=== PATIENT | male | born 1945 | race Caucasian/White ===

== ENCOUNTER → 2020-10-01 13:47 | Outpatient (BNVA) | payer MEDICARE, OTHER, SELFPAY | PROVIDERS: Visit Provider Urology | DX: Z13.89 Encounter for screening for other disorder (principal) | CPT/HCPCS: Q3014 ==

== ENCOUNTER 2021-08-10 10:37 | Outpatient (REF) | payer MEDICARE, OTHER, SELFPAY ==
[2021-08-10 12:07] LABS: Erythrocyte Sedimentation Rate 29 MM/HR (0-15)
[2021-08-10 12:13] LABS: Anion Gap 10 (12-20); Blood Urea Nitrogen 23 mg/dL (9-16); Calcium 10.1 mg/dL (8.4-10.2); Carbon Dioxide 32 mmol/L (22-29); Chloride 106 mmol/L (96-108); Estimated Glomerular Filt Rate > 60; Glucose Fasting 101 mg/dL (60-99); Potassium 4.8 mmol/L (3.3-5.1); Sodium 143 mmol/L (135-145)
[2021-08-10 12:29] LABS: HIV AB/AG Nonreactive (Nonreactive); HIV Num 1 0.07 S/CO (0.00-0.99)
[2021-08-10 12:38] LABS: Syphilis Screen Reactive (Nonreactive)
[2021-08-11 05:06] LABS: Lyme Abs Screen <0.90 index
[2021-08-11 11:17] LABS: Anti Nuclear Antibody Screen NEGATIVE (NEGATIVE)
[2021-08-17 12:44] LABS: RPR Quantitative Reactive 1:1 (Nonreactive); T.Pallidum Particle Agg Test Reactive (Nonreactive)
== END 2021-08-10 10:38 | disposition home or self-care (01) ==
LOC: HO.LAB 10:37
PROVIDERS: Visit Provider Psychiatry & Neurology Neurology
DX: G62.9 Polyneuropathy, unspecified (principal)
CPT/HCPCS: 36415; 80048; 85652; 86038; 86039; 86592; 86617; 86618; 86780; 87389

== ENCOUNTER 2021-09-16 09:24 | Day surgery (SDC) | payer MEDICARE, OTHER, SELFPAY ==
[2021-09-16] VITALS (7 sets, daily range): BP systolic 94–117; BP diastolic 42–63; PULSE 52–74; RESP 16–20; TEMP 36.3–36.8; O2SAT 97–99; BMI 25.3
--- NOTE | ~2021-09-16 | FL_ITS ---
PROCEDURE: XR LUMBAR PUNCTURE CLINICAL INFORMATION: Small fiber neuropathy. COMPARISON: None TECHNIQUE: Following explaining fluoroscopy-guided lumbar puncture procedure, benefits and risk, a written consent was obtained. Patient was placed prone on fluoroscopy table and low back area was cleaned and draped in usual sterile manner. 1% lidocaine was injected at puncture site overlying the L4-L5 disc level in a left paramidline region. A 22-gauge spinal needle was inserted from the skin intrathecally under fluoroscopy. After observing CSF fluid return, patient was quickly placed in left lateral decubitus view and opening CSF pressure was obtained. Subsequently clear CSF fluid was collected in 4 test tubes. Postprocedure stylet was reintroduced into the needle and needle withdrawn. Complete hemostasis achieved at puncture site. Sterile dressing applied postprocedure. Patient tolerated procedure extremely well. FINDINGS: The opening CSF pressure measured 17 cm of water. Approximately 10.5 mL of clear CSF fluid collection in 4 test tubes and sent to lab. FLUOROSCOPY TIME: 0.3 minutes DOSE AREA PRODUCT: 2.293 Gy-cm2 FL/FL guided lumbar puncture LP IMPRESSION: Successful fluoroscopy-guided L4-L5 lumbar puncture performed.
[2021-09-16 09:40] LABS: MANUAL DIFF FLAG NO
[2021-09-16 09:54] LABS: Basophils Percent Auto 0.2 % (0-2); Eosinophils Absolute Auto 0.3 X10*3/uL (0.0-0.4); Eosinophils Percent Auto 3.3 % (0-4); Hematocrit 40.9 % (42.0-52.0); Imm Gran Abs Auto 0.05 X10*3/uL (0.00-0.03); Imm Gran Pct Auto 0.5 % (0.0-0.4); Lymphocytes Absolute Auto 2.1 X10*3/uL (1.2-4.9); Lymphocytes Percent Auto 21.3 % (20-40); Mean Corpuscular HGB Conc 34.2 g/dl (31.0-36.0); Mean Corpuscular Hemoglobin 30.5 pg (27.0-33.0); Mean Corpuscular Volume 89.1 fL (80.0-98.0); Mean Platelet Volume 9.1 fL (9.4-12.4); Monocytes Absolute Auto 0.8 X10*3/uL (0.1-1.2); Monocytes Percent Auto 7.9 % (2-11); Neutrophils Absolute Auto 6.6 x10*3/uL (2.0-8.3); Neutrophils Percent Auto 66.8 % (45-73); Platelet Count 227 X10*3/uL (160-400); Red Blood Count 4.59 X10*6/uL (4.60-5.80); White Blood Count 9.9 X10*3/uL (4.8-10.8)
[2021-09-16 09:57] LABS: INTERNATIONAL NORM RATIO 1.1 (0.9-1.1); Prothrombin Time 12.4 SEC (9.9-13.0)
[2021-09-16 10:00] LABS: Partial Thromboplastin Time 36.6 SEC (24.1-38.0)
[2021-09-16 13:20] LABS: Glucose CSF 68 mg/dL; Total Protein CSF 43.2 mg/dL (15-45)
[2021-09-16 13:24] LABS: CSF Appearance Clear, Colorless; CSF Tube # 3
[2021-09-16 14:15] LABS: Appearance CSF CLEAR; CSF Monos 40 %; CSF Tube # 4; Color CSF COLORLESS; Lymphocytes CSF 60 %; Red Blood Cell CSF 1 MM*3; White Blood Cell CSF 1 MM*3
[2021-09-17 06:30] LABS: Oligoclonal Serum Yes
[2021-09-19 21:46] LABS: Albumin 4.2 g/dL (3.2-4.6); Albumin, CSF 24.5 mg/dL (8.0-42.0); IgG 1420 mg/dL (600-1540); IgG Synthesis Rate -5.8 mg/24 h (-9.9-3.3); IgG, CSF 3.6 mg/dL (0.8-7.7)
[2021-09-20 16:40] LABS: VDRL Qualitative CSF Nonreactive (Nonreactive)
== END 2021-09-16 15:29 | disposition home or self-care (01) ==
PROVIDERS: Psychiatry & Neurology Neurology; Visit Provider Radiology Diagnostic Radiology
PROC: 009U3ZZ Drainage of Spinal Canal, Percutaneous Approach (ICD-10-PCS; CPT 62270; principal; 2021-09-16 11:00)
DX: G62.9 Polyneuropathy, unspecified (principal); Z79.899 Other long term (current) drug therapy
CPT/HCPCS: 36415; 62328; 82042; 82945; 83916; 84157; 85025; 85610; 85730; 86592; 87015; 87070; 87205; 89051

== ENCOUNTER 2021-11-04 13:56 | Outpatient (REF) | payer MEDICARE, OTHER, SELFPAY ==
[2021-11-04 15:13] LABS: Prostate Specific Antigen 4.18 ng/mL (<0.05-4.0)
== END 2021-11-04 13:57 | disposition home or self-care (01) ==
LOC: HO.LAB 13:56
PROVIDERS: PCP Physician Assistant; Visit Provider Urology
DX: N40.1 Benign prostatic hyperplasia with lower urinary tract symptoms (principal); N13.8 Other obstructive and reflux uropathy; Z12.5 Encounter for screening for malignant neoplasm of prostate
CPT/HCPCS: 36415; 84153

== ENCOUNTER → 2021-11-05 11:12 | Outpatient (BNVA) | payer MEDICARE, OTHER, SELFPAY | PROVIDERS: Visit Provider Urology | DX: N40.1 Benign prostatic hyperplasia with lower urinary tract symptoms (principal); N13.8 Other obstructive and reflux uropathy; R39.12 Poor urinary stream | CPT/HCPCS: Q3014 ==

== ENCOUNTER 2022-04-03 16:22 | Emergency (ER) | payer MEDICARE, OTHER, SELFPAY ==
--- NOTE | ~2022-04-03 | XR_ITS ---
EXAMINATION: XR CHEST CLINICAL INFORMATION: Chest pain COMPARISON: CT chest 03/17/2021 TECHNIQUE: Frontal view of the chest was obtained. FINDINGS: No significant abnormality is noted involving the heart, lungs, mediastinum, bony thorax or soft tissues. XR/XR chest 1V IMPRESSION: Unremarkable examination.
--- NOTE | 2022-04-03 16:27 | ECG_ITS ---
Test Reason : CHEST PAIN Blood Pressure : / mmHG Vent. Rate : 067 BPM Atrial Rate : 067 BPM P-R Int : 156 ms QRS Dur : 134 ms QT Int : 410 ms P-R-T Axes : 050 000 030 degrees QTc Int : 433 ms Normal sinus rhythm Right bundle branch block Abnormal ECG No previous ECGs available Referred By: Generic ED Physician Electronically Signed By:DEWEY CAGLE
[2022-04-03 16:31] VITALS: BP 127/63; PULSE 75; RESP 18; TEMP 37.1; O2SAT 97; BMI 25.4
[2022-04-03 16:51] LABS: MANUAL DIFF FLAG NO
[2022-04-03 16:52] LABS: Basophils Percent Auto 0.4 % (0-2); Eosinophils Absolute Auto 0.2 X10*3/uL (0.0-0.4); Hematocrit 39.1 % (42.0-52.0); Hemoglobin 13.7 g/dl (14.0-18.0); Imm Gran Abs Auto 0.03 X10*3/uL (0.00-0.03); Imm Gran Pct Auto 0.3 % (0.0-0.4); Lymphocytes Absolute Auto 1.8 X10*3/uL (1.2-4.9); Lymphocytes Percent Auto 18.6 % (20-40); Mean Corpuscular Hemoglobin 30.2 pg (27.0-33.0); Mean Corpuscular Volume 86.3 fL (80.0-98.0); Mean Platelet Volume 9.3 fL (9.4-12.4); Monocytes Absolute Auto 0.6 X10*3/uL (0.1-1.2); Monocytes Percent Auto 5.9 % (2-11); Neutrophils Absolute Auto 7.1 x10*3/uL (2.0-8.3); Neutrophils Percent Auto 72.8 % (45-73); Platelet Count 209 X10*3/uL (160-400); Red Blood Count 4.53 X10*6/uL (4.60-5.80); Red Cell Distribution Width 12.3 % (11.0-16.0); White Blood Count 9.7 X10*3/uL (4.8-10.8)
[2022-04-03 17:00] LABS: Appearance Urine Clear; Color Urine Yellow; Glucose Urine UA Negative (Negative); Leukocyte Esterase Urine Small (1+) (Negative); Nitrite Urine Negative (Negative); Urine Blood Negative (Negative); Urine Ketones Negative (Negative); Urine Protein Negative (Neg-Trace)
[2022-04-03 17:06] LABS: Anion Gap 13 (12-20); Blood Urea Nitrogen 20 mg/dL (9-16); Calcium 9.5 mg/dL (8.4-10.2); Carbon Dioxide 25 mmol/L (22-29); Chloride 104 mmol/L (96-108); Creatinine Clr Calc Pharmacy 58.7; Estimated Glomerular Filt Rate > 60; Glucose Random 151 mg/dL (60-115); Potassium 4.4 mmol/L (3.3-5.1); Sodium 138 mmol/L (135-145)
[2022-04-03 17:13] LABS: Troponin-I High Sensitivity < 3.5 ng/L (<3.5-35.0)
[2022-04-03 17:14] LABS: COVID-19 Test Negative (Negative); IDNOW Serial# 08D9AD1C
[2022-04-03 17:17] LABS: Bacteria Urine None Seen (None Seen); Hyaline Casts Urine 0-2 /LPF (0-2); RBC Urine 0-2 /HPF (0-2); Squamous Epithelial Cell Urine 0-2 /HPF (0-2); UACC Culture Trigger YES; WBC Urine 0-5 /HPF (0-5)
[2022-04-03 19:42] VITALS: BP 149/64; PULSE 61; RESP 16; TEMP 36.1; O2SAT 98
[2022-04-03 23:11] VITALS: BP 135/63; PULSE 60; TEMP 36.4; O2SAT 99
--- NOTE | 2022-04-03 23:57 | PC.NURSE ---
Pt. alert and oriented, sitting in bed. Pt. would like to wait to take medications until right at time of d/c as he wants to be sure to be home before the flexeril takes effect.
--- NOTE | 2022-04-04 00:13 | ED_ITS ---
HPI - General Adult General Chief complaint: Dizziness Stated complaint: Weakness, chest pain Time Seen by Provider: 04/03/22 23:42 Source: patient Mode of arrival: ambulatory Limitations: no limitations History of Present Illness HPI narrative: Patient with multiple complaints chronic back pain anxiety complaining of pain to lower back does not any pain medication at home also feel dizzy and anxious unable to sleep very well was seen in ER last week at [facility] was given Tylenol and ibuprofen which did not work has poor sleep Related Data Home Medications Medication Instructions Recorded Confirmed amitriptyline 25 mg tablet 25 mg PO BEDTIME 10/01/20 blood sugar diagnostic #10 ea 10/01/20 lancets #100 ea 10/01/20 Previous Rx's Medication Instructions Recorded finasteride 5 mg tablet 5 mg PO DAILY 90 days #90 tabs 11/05/21 tolterodine 4 mg capsule,extended 4 mg PO DAILY 30 days #30 caps 11/18/21 release 24 hr cyclobenzaprine 10 mg tablet 10 mg PO Q8H #20 tabs 04/03/22 lorazepam 1 mg tablet (Ativan) 1 mg PO BEDTIME PRN anxiety #14 04/03/22 tabs tramadol 50 mg tablet 50 mg PO Q6H PRN pain #20 tabs 04/03/22 Allergies Allergy/AdvReac Type Severity Reaction Status Date / Time No Known Allergies Allergy Verified 04/03/22 16:31 Review of Systems Review of Systems: Yes all other systems are reviewed and are negative [facility] Past Medical History Medical History Bladder outlet obstruction Incomplete emptying of bladder Mass of right testicle Orchalgia Urinary urgency Weak urinary stream Social History Social History Advance Directives: No Advance Directives Information Provided: No Physical Exam ED Vital Signs: Vital Signs - 24 hr 04/03/22 16:31 04/03/22 19:42 04/03/22 23:11 Temperature 98.7 F 97.0 F 97.6 F Pulse Rate 75 61 60 Respiratory Rate 18 16 Blood Pressure 127/63 149/64 H 135/63 Pulse Oximetry 97 98 99 Oxygen Delivery Method Room Air Room Air Room Air BMI result Body Mass Index 25.4 Appearance: Alert. Oriented X3. No acute distress. Eyes: PERRLA, No Nystagmus ENT: Pharynx normal. Oral Mucosa moist Neck: Normal inspection. Neck supple. CVS: Normal heart rate and rhythm. Pulses normal. Respiratory: No respiratory distress. Equal air entry bilateral, no wheezing/rales/rhonchi Abdomen: Soft and nontender. Bowel sounds are present, no mass palpable, no CVA tenderness Skin: Skin warm and dry. Normal skin color. Normal skin turgor. Extremities: No lower extremity edema. No calf tenderness back: Diffuse lumbar spine tenderness no focal midline tenderness SLR negative gait stable Neuro: Oriented X 3. No motor deficit. No sensory deficit.No cerebellar signs , cranial nerves II-XII intact Medical Decision Making MDM Narrative Medical decision making narrative: Patient with nonspecific complaints seems to be depressed and anxious discharge patient home on lorazepam Flexeril and tramadol advised to follow with PCP patient labs were stable EKG without ischemic changes Lab Data Lab results reviewed: Yes I reviewed the patient's lab results. Result diagrams: 04/03/22 16:43 04/03/22 16:43 Labs: Lab Results 04/03/22 04/03/22 04/03/22 Range/Units 16:43 16:43 16:43 WBC 9.7 (4.8-10.8) X10*3/uL RBC 4.53 L (4.60-5.80) X10*6/uL Hgb 13.7 L (14.0-18.0) g/dl Hct 39.1 L (42.0-52.0) % MCV 86.3 (80.0-98.0) fL MCH 30.2 (27.0-33.0) pg MCHC 35.0 (31.0-36.0) g/dl RDW 12.3 (11.0-16.0) % Plt Count 209 (160-400) X10*3/uL MPV 9.3 L (9.4-12.4) fL Immature Gran % (Auto) 0.3 (0.0-0.4) % Neut % (Auto) 72.8 (45-73) % Lymph % (Auto) 18.6 L (20-40) % [place] % (Auto) 5.9 (2-11) % Eos % (Auto) 2.0 (0-4) % Baso % (Auto) 0.4 (0-2) % Lymph # (Auto) 1.8 (1.2-4.9) X10*3/uL [place] # (Auto) 0.6 (0.1-1.2) X10*3/uL Eos # (Auto) 0.2 (0.0-0.4) X10*3/uL Baso # (Auto) 0.0 (0.0-0.2) X10*3/uL Abs Immat Gran (auto) 0.03 (0.00-0.03) X10*3/uL Absolute Neuts (auto) 7.1 (2.0-8.3) x10*3/uL Absolute Nucleated RBC 0.000 (0.0-0.012) X10*3/uL Nucleated RBC % (auto) 0.0 (0.0-0.2) /100WBC Sodium 138 (135-145) mmol/L Potassium 4.4 (3.3-5.1) mmol/L Chloride 104 (96-108) mmol/L Carbon Dioxide 25 (22-29) mmol/L Anion Gap 13 (12-20) BUN 20 H (9-16) mg/dL Creatinine 0.92 (0.5-1.4) mg/dL Estim Creat Clear Calc 58.7 Estimated GFR > 60 Random Glucose 151 H (60-115) mg/dL Calcium 9.5 (8.4-10.2) mg/dL Troponin I High Sens < 3.5 (<3.5-35.0) ng/L Urine Color Urine Appearance Urine pH (5.0-9.0) Ur Specific [place] (1.005-1.025) Urine Protein (Neg-Trace) mg/dL Urine Glucose (UA) (Negative) mg/dL Urine Ketones (Negative) mg/dL Urine Blood (Negative) Urine Nitrite (Negative) Ur Leukocyte Esterase (Negative) Urine RBC (0-2) /HPF Urine WBC (0-5) /HPF Ur Squamous Epith Cells (0-2) /HPF Urine Bacteria (None Seen) Hyaline Casts (0-2) /LPF COVID-19 ([facility]) (Negative) COVID-19 Clin Com 04/03/22 04/03/22 Range/Units 16:43 16:51 WBC (4.8-10.8) X10*3/uL RBC (4.60-5.80) X10*6/uL Hgb (14.0-18.0) g/dl Hct (42.0-52.0) % MCV (80.0-98.0) fL MCH (27.0-33.0) pg MCHC (31.0-36.0) g/dl RDW (11.0-16.0) % Plt Count (160-400) X10*3/uL MPV (9.4-12.4) fL Immature Gran % (Auto) (0.0-0.4) % Neut % (Auto) (45-73) % Lymph % (Auto) (20-40) % [place] % (Auto) (2-11) % Eos % (Auto) (0-4) % Baso % (Auto) (0-2) % Lymph # (Auto) (1.2-4.9) X10*3/uL [place] # (Auto) (0.1-1.2) X10*3/uL Eos # (Auto) (0.0-0.4) X10*3/uL Baso # (Auto) (0.0-0.2) X10*3/uL Abs Immat Gran (auto) (0.00-0.03) X10*3/uL Absolute Neuts (auto) (2.0-8.3) x10*3/uL Absolute Nucleated RBC (0.0-0.012) X10*3/uL Nucleated RBC % (auto) (0.0-0.2) /100WBC Sodium (135-145) mmol/L Potassium (3.3-5.1) mmol/L Chloride (96-108) mmol/L Carbon Dioxide (22-29) mmol/L Anion Gap (12-20) BUN (9-16) mg/dL Creatinine (0.5-1.4) mg/dL Estim Creat Clear Calc Estimated GFR Random Glucose (60-115) mg/dL Calcium (8.4-10.2) mg/dL Troponin I High Sens (<3.5-35.0) ng/L Urine Color Yellow Urine Appearance Clear Urine pH 7.0 (5.0-9.0) Ur Specific [place] 1.010 (1.005-1.025) Urine Protein Negative (Neg-Trace) mg/dL Urine Glucose (UA) Negative (Negative) mg/dL Urine Ketones Negative (Negative) mg/dL Urine Blood Negative (Negative) Urine Nitrite Negative (Negative) Ur Leukocyte Esterase Small (1+) H (Negative) Urine RBC 0-2 (0-2) /HPF Urine WBC 0-5 (0-5) /HPF Ur Squamous Epith Cells 0-2 (0-2) /HPF Urine Bacteria None Seen (None Seen) Hyaline Casts 0-2 (0-2) /LPF COVID-19 ([facility]) Negative (Negative) COVID-19 Clin Com See Note ECG Data Attestation: I personally reviewed and interpreted this ECG as follows: Interpretation: Normal sinus rhythm heart rate 67 beats per minute right bundle-branch block no acute ST-T no acute ischemia Discharge Plan Discharge Clinical Impression: Chronic pain disorder, Anxiety Patient Disposition: Home, Self-Care Instructions: Chronic Pain (ED), Anxiety (ED) Additional Instructions: Take medication as prescribed Follow with PCP Prescriptions: New cyclobenzaprine 10 mg tablet 10 mg PO Q8H Qty: 20 0RF tramadol 50 mg tablet 50 mg PO Q6H PRN (Reason: pain) Qty: 20 0RF lorazepam [Ativan] 1 mg tablet 1 mg PO BEDTIME PRN (Reason: anxiety) Qty: 14 0RF No Action tolterodine 4 mg capsule,extended release 24hr 4 mg PO DAILY 30 Days Qty: 30 1RF amitriptyline 25 mg tablet 25 mg PO BEDTIME (DME) Accu-Chek Gabriela Plus test strp Strip See Rx Instructions Not Applicable .MEDSUPPLY Qty: 10 Rx Instructions: As directed (DME) lancets Misc See Rx Instructions topical .MEDSUPPLY Qty: 100 Rx Instructions: As directed finasteride 5 mg tablet 5 mg PO DAILY 90 Days Qty: 90 1RF
[2022-04-04 00:19] VITALS: BP 134/70; PULSE 62; RESP 17; TEMP 36.7; O2SAT 99
[2022-04-04] MEDS: traMADoL HCL 50 MG TABLET PO (00:40)
[2022-04-04] MEDS: Cyclobenzaprine HCl 10 MG TABLET PO (00:41)
== END 2022-04-04 00:49 | disposition home or self-care (01) ==
PROVIDERS: Emergency Provider Internal Medicine; PCP Physician Assistant
DX: G89.4 Chronic pain syndrome (principal); M54.50 Low back pain, unspecified; F41.9 Anxiety disorder, unspecified; Z20.822 Contact with and (suspected) exposure to COVID-19
CPT/HCPCS: 71045; 80048; 81001; 81003; 84484; 85025; 87086; 87635; 93005; 99283; 99284

== ENCOUNTER → 2022-08-30 13:35 | Outpatient (BNVA) | payer MEDICARE, OTHER, SELFPAY | PROVIDERS: PCP Internal Medicine; Visit Provider Nurse Practitioner Family | DX: R26.9 Unspecified abnormalities of gait and mobility (principal); R25.2 Cramp and spasm | CPT/HCPCS: 99202 ==

== ENCOUNTER → 2022-10-01 08:55 | Outpatient (BNVA) | payer MEDICARE, OTHER, SELFPAY | PROVIDERS: PCP Internal Medicine; Visit Provider Nurse Practitioner Family | DX: G31.84 Mild cognitive impairment of uncertain or unknown etiology (principal); R26.9 Unspecified abnormalities of gait and mobility; R25.2 Cramp and spasm | CPT/HCPCS: 99212 ==

== ENCOUNTER → 2022-10-13 15:47 | Outpatient (BNVA) | payer MEDICARE, OTHER, SELFPAY | PROVIDERS: PCP Internal Medicine; Visit Provider Nurse Practitioner Family | DX: G31.84 Mild cognitive impairment of uncertain or unknown etiology (principal); R26.9 Unspecified abnormalities of gait and mobility; R25.2 Cramp and spasm | CPT/HCPCS: 99212 ==